=== PATIENT | male | born 1990 | race Two or more races ===

== ENCOUNTER 2018-11-07 15:16 | Emergency (ER) | payer SELFPAY ==
[~2018-11-07] VITALS: Ht 177.8 cm; Wt 81.6 kg
[2018-11-07] MEDS ORDERED: HYDROMORPHONE INJ 2 MG/ML DISP.SYRIN IV ONE (15:30)
[2018-11-07] MEDS ORDERED: IV NS 0.9% 1,000 ML BAG IV ONE (15:30)
[2018-11-07] MEDS ORDERED: ONDANSETRON HCL/PF 4 MG/2 ML VIAL IVP ONE (15:30)
[2018-11-07] MEDS ORDERED: ONDANSETRON HCL/PF 4 MG/2 ML VIAL ONE (15:34)
[2018-11-07] MEDS ORDERED: HYDROMORPHONE 1 MG/1 ML DISP.SYRIN ONE ×2 (15:34→15:59)
--- NOTE | 2018-11-07 15:34 | NUR ---
[id number], C/O LEFT ARM PAIN 10/ PS S/P FALL WHILE GARDENING, -KO. DEFORMITY EVIDENT. PT IS MONTSERRATIAN-SPEAKING, AOX4, VSS, RR EVEN AND UNLABORED ON RA. NO ACUTE DISTRESS NOTED. SKIN REMAINS INTACT. READY FOR EVAL
[2018-11-07 15:46] LABS: BASOPHILS # (AUTO) 0.1 /CMM (0.0-0.2); BASOPHILS % (AUTO) 0.5 % (0.0-2.0); EOSINOPHILS % (AUTO) 1.1 % (0.0-6.0); HEMATOCRIT 48 % (39-51); HEMOGLOBIN 16.3 g/dL (13.5-17.5); LYMPHOCYTES # (AUTO) 1.2 /CMM (0.8-4.8); LYMPHOCYTES % (AUTO) 8.8 % (20.0-44.0); MEAN CORPUSCULAR HGB CONC 34 g/dl (31.0-36.0); MEAN CORPUSCULAR VOLUME 85 fL (80-96); MONOCYTES # (AUTO) 0.9 /CMM (0.1-1.30); MONOCYTES % (AUTO) 6.4 % (2.0-12.0); NEUTROPHILS # (AUTO) 11.1 /CMM (1.8-8.9); NEUTROPHILS % (AUTO) 83.2 % (43.0-81.0); PLATELET COUNT (AUTO) 149 /CMM (150-450); WHITE BLOOD COUNT (AUTO) 13.4 K/uL (4.3-11.0)
[2018-11-07 15:48] LABS: CALCIUM, SERUM 8.7 mg/dL (8.5-10.1); CREATININE 0.9 mg/dL (0.6-1.3); POTASSIUM 3.7 mmol/L (3.5-5.1)
[2018-11-07] MEDS ORDERED: HYDROMORPHONE 1 MG/1 ML DISP.SYRIN IV ONE (16:00)
--- NOTE | 2018-11-07 16:46 | NUR ---
CALLED [facility]: [facility]. CAN NOT SEE THEM. CALLED RADIOLOGY THEY ARE SENDING THEM
[2018-11-07] MEDS ORDERED: PROPOFOL 200 MG/20 ML VIAL IV ONE (17:00)
[2018-11-07] MEDS ORDERED: PROPOFOL 20 ML IV ONE (17:08)
--- NOTE | 2018-11-07 17:23 | NUR ---
START OF CONSCIOUS SEDATION FOR LEFT ELBOW REDUCTION: DR SOLIS, RT VIRGILIO, [place] JARVIS AND KELLY, TANK TRUCK DRIVERMARIS CHAPMAN AND INÉS AT BEDSIDE VITALS @ 1723: HR 114, O2 100% ON 2L NC, BP 125/75, R 18 1723 80MG PROPOFOL IV PUSH RAC 18G 1724 50MG PROPOFOL IV PUSH RAC 18G 1726 20MG PROPOFOL IV PUSH RAC 18G 1727 30 MG PROPOFOL IV PUSH RAC 18G TOTAL PROPOFOL GIVEN 180MG VITALS AT COMPLETION: HR 72, O2 96%, BP 120 66, R 16
--- NOTE | 2018-11-07 18:02 | NUR ---
PT RECOVERING WELL FROM PROCEDURE. VSS. NO COMPLAINTS AT THIS TIME. WILL CONT TO MONITOR.
--- NOTE | 2018-11-07 19:05 | NUR ---
IV removed. Catheter intact and site benign. Pressure and 4x4 applied to site. No bleeding noted. Patient discharged to home in stable condition. Written and verbal after care instructions given. Patient verbalizes understanding of instruction.
[2018-11-07 20:39] VITALS: BP 135/78
== END 2018-11-07 19:05 | disposition home or self-care (01) ==
LOC: ER 15:22
DX: S52.122A Displaced fracture of head of left radius, initial encounter for closed fracture (principal); W01.0XXA Fall on same level from slipping, tripping and stumbling without subsequent striking against object, initial encounter; Y93.89 Activity, other specified; Y92.89 Other specified places as the place of occurrence of the external cause; Y99.8 Other external cause status
CPT/HCPCS: 24655; 36415; 73070; 73080; 73090; 80048; 85025; 85730; 87081; 96374; 96375; 96376; 99284; A4606; J1170 ×2; J2405; J2704; J7030 ×2